=== PATIENT | female | born 1965 | race Caucasian/White ===

== ENCOUNTER 2019-03-22 05:33 | Day surgery (SDC) | payer BC ==
[2019-03-21 10:46] LABS: HEMATOCRIT 42.9 % (36.0-47.0); HEMOGLOBIN 14.9 g/dL (12.0-15.5); MEAN CORPUSCULAR HEMOGLOBIN 29.3 pg (27.0-33.4); MEAN CORPUSCULAR HGB CONC 34.7 g/dL (32.0-36.0); MEAN CORPUSCULAR VOLUME 85 fl (80-97); PLATELET COUNT 303 10^3/uL (150-450); RED BLOOD COUNT 5.08 10^6/uL (3.72-5.28); RED CELL DISTRIBUTION WIDTH 12.8 % (11.5-14.0); WHITE BLOOD COUNT 7.1 10^3/uL (4.0-10.5)
[2019-03-21 10:46] LABS: APPEARANCE,URINE CLEAR; BILIRUBIN,URINE NEGATIVE (NEGATIVE); COLOR,URINE YELLOW; GLUCOSE, URINE NEGATIVE (NEGATIVE); KETONES,URINE NEGATIVE (NEGATIVE); LEUKOCYTE ESTERASE,URINE NEGATIVE (NEGATIVE); NITRITE,URINE NEGATIVE (NEGATIVE); PROTEIN,URINE NEGATIVE (NEGATIVE); URINE SPECIFIC GRAVITY 1.017; UROBILINOGEN,URINE NEGATIVE mg/dL (<2.0)
[~2019-03-22 05:33] MED LIST: LACTATED RINGERS 1000 ML IV PRN; LIDOCAINE 0.5% INJ-PF (5 MG/ML) 50 ML SDV SUBCUT PRN
[2019-03-22] MEDS ORDERED: ONDANSETRON HCL INJ/PF 4 MG/2 ML SDV ONE ×2 (06:46→09:23)
[2019-03-22] MEDS ORDERED: KETOROLAC TROMETHAMINE 60 MG/2 ML SDV ONE (06:46)
[2019-03-22] MEDS ORDERED: FENTANYL CITRATE INJ/PF 100 MCG/2 ML AMPUL ONE (06:46)
[2019-03-22] MEDS ORDERED: MIDAZOLAM 2 MG/2 ML INJ ONE (06:46)
[2019-03-22] MEDS ORDERED: PROPOFOL INJ 200 MG/20 ML VIAL IV ONE (06:47)
[2019-03-22] MEDS ORDERED: LIDOCAINE 1% INJ-PF (10 MG/ML) 30 ML SDV ONE (06:47)
[2019-03-22] MEDS ORDERED: FENTANYL CITRATE INJ/PF 100 MCG/2 ML AMPUL IV PRN ×3 (07:40)
[2019-03-22] MEDS ORDERED: OXYCODONE-ACETAMINOPHEN 5-325 MG TABLET PO PRN ×3 (07:40→08:55)
[2019-03-22] MEDS ORDERED: PROMETHAZINE HCL INJ 25 MG/1 ML VIAL IV PRN ×2 (07:40)
[2019-03-22] MEDS ORDERED: MORPHINE SULFATE 10 MG/ML INJ IV PRN (07:40)
[2019-03-22] MEDS ORDERED: MEPERIDINE HCL/PF INJ 25 MG/1 ML DISP.SYRIN IV PRN (07:40)
[2019-03-22] MEDS ORDERED: DIPHENHYDRAMINE HCL 50 MG/ML VIAL IV PRN (07:40)
[2019-03-22] MEDS ORDERED: ONDANSETRON HCL INJ/PF 4 MG/2 ML SDV IV PRN ×2 (07:40→08:56)
[2019-03-22] MEDS: FENTANYL CITRATE INJ/PF 100 MCG/2 ML AMPUL ONE ×2 (08:02→16:46)
--- NOTE | 2019-03-22 08:08 | Operative Report ---
Operative Report DATE OF SURGERY: 03/22/19 PREOPERATIVE DIAGNOSIS: 1. Postmenopausal bleeding. 2. History of endometrial ablation POSTOPERATIVE DIAGNOSIS: Same plus uterine perforation OPERATION: 1. Diagnostic hysteroscopy. 2. Dilatation and curettage SURGEON: DINORAH LIANG ANESTHESIA: LMAC TISSUE REMOVED OR ALTERED: Endometrial curettings COMPLICATIONS: Uterine perforation ESTIMATED BLOOD LOSS: 5 mL INTRAOPERATIVE FINDINGS: Uterus sounded 8 cm; atrophic, scarred endometrium; unable to identify bilateral ostia; grade 23 uterine prolapse PROCEDURE: The patient was taken to the Operating Room where LMAC anesthesia was obtained without difficulty. She was prepped and draped in the normal sterile fashion in the dorsal lithotomy position. Exam under anesthesia was performed and noted above. A bivalve speculum was placed in the vagina. The anterior cervix was grasped with a single-tooth tenaculum and the uterus sounded to 8 cm. Sequential dilators were then used to dilate the cervix to accommodate the hysteroscope. The hysteroscope was primed with Normal saline and then gently advanced into the uterine cavity in the usual fashion. It was slightly difficult to advance the hysteroscope to the fundal region secondary to her history of endometrial ablation. The endometrial lining was scarred and atrophic. A tract was made using the dilators and with advancement of the hysteroscope. It looked as if I could reach the fundal region, therefore I advanced the hysteroscope and perforated the uterus. The area was hemostatic. I then pulled back the hysteroscope. Pictures were taken and the hysteroscope then removed. At this time gentle a curettage was performed. Scant amounts of endometrium was noted. All instruments were removed from the patient's cervix and vagina. The tenaculum site was hemostatic. Sponge, lap and instrument counts are correct 2. No perioperative antibiotics were given as is not indicated for this procedure. The patient tolerated the procedure well and was taken to the recovery area awake and in stable condition.
[2019-03-22] MEDS ORDERED: ACETAMINOPHEN 1,000 MG/100 ML RTUPB IV ONE (08:11)
[2019-03-22] MEDS ORDERED: OXYCODONE-ACETAMINOPHEN 5-325 MG TABLET ONE (08:49)
[2019-03-22 10:02] VITALS: BP 129/79
== END 2019-03-22 10:05 | disposition home or self-care (01) ==
LOC: OROUT 05:33
PROVIDERS: ATTEND Obstetrics & Gynecology
DX: N93.8 Other specified abnormal uterine and vaginal bleeding (principal); S37.69XA Other injury of uterus, initial encounter; Y65.8 Other specified misadventures during surgical and medical care; Y76.3 Surgical instruments, materials and obstetric and gynecological devices (including sutures) associated with adverse incidents; Y92.530 Ambulatory surgery center as the place of occurrence of the external cause
CPT/HCPCS: 36415; 85027; 81025; 81001; 88305 ×2; 58558; J2250; J1885; J3010; J3490; J2405; J2704; J0131; 952

== ENCOUNTER 2019-09-25 19:57 | Emergency (ER) | payer BC ==
[2019-09-25] MEDS ORDERED: ASPIRIN 81 MG TABLET, CHEWABLE PO ONE (20:26)
--- NOTE | 2019-09-25 20:27 | ER Document Report ---
ED Medical Screen (RME) - General Chief Complaint: Chest Pain Stated Complaint: CHEST PAIN Time Seen by Provider: 09/25/19 20:20 Primary Care Provider: HAILE LONGORIA FNP [Primary Care Provider] - Follow up as needed Mode of Arrival: Ambulatory Information source: Patient Notes: 54-year-old female with history of migraines presents emergency department with complaints of chest tightness since Wednesday. Reports was not bad until today while she is at work she started having some midsternal chest pain and she also reports left-sided chest pain that radiates to her back. Reports she does feel nauseated no vomiting fever diarrhea. No history of cardiac disease. No family history of cardiac disease. EKG shows sinus rhythm. Patient reports she does feel slightly short of breath I have greeted and performed a rapid initial assessment of this patient. A comprehensive ED assessment and evaluation of the patient, analysis of test results and completion of the medical decision making process will be conducted by additional ED providers. Dictation of this chart was performed using voice recognition software; therefore, there may be some unintended grammatical errors. TRAVEL OUTSIDE OF THE [place] IN LAST 30 DAYS: No - Related Data Allergies/Adverse Reactions: fentanyl Adverse Reaction (Verified 03/21/19 09:55) Past Medical History - Past Medical History Cardiac Medical History: Denies: Hx Coronary Artery Disease, Hx Heart Attack, Hx Hypertension Pulmonary Medical History: Denies: Hx Asthma, Hx Bronchitis, Hx COPD, Hx Pneumonia Neurological Medical History: Denies: Hx Cerebrovascular Accident, Hx Seizures Musculoskeltal Medical History: Reports Hx Arthritis - NECK AND WENDI FEET - Immunizations Hx Diphtheria, Pertussis, Tetanus Vaccination: Yes Physical Exam - Vital signs Vitals: Temp Pulse BP Pulse Ox 97.7 F 75 121/93 H 100 09/25/19 20:15 09/25/19 20:15 09/25/19 20:15 09/25/19 20:15 Course - Vital Signs Vital signs: Temp Pulse Resp BP Pulse Ox 97.7 F 75 121/93 H 100 09/25/19 20:15 09/25/19 20:15 09/25/19 20:15 09/25/19 20:15 Doctor's Discharge - Discharge Referrals: HAILE LONGORIA FNP [Primary Care Provider] - Follow up as needed
--- NOTE | 2019-09-25 21:12 | RADIOLOGY REPORT (SQ) ---
XR CHEST 2 VIEWS CLINICAL STATEMENT: chest pain COMPARISON: None FINDINGS: Cardiomediastinal silhouette is within normal limits. There is no focal lung consolidation or pleural effusion. No evidence of pulmonary edema or pneumothorax. IMPRESSION: No acute cardiopulmonary disease.
[2019-09-25 22:12] LABS: ABSOLUTE BASOPHILS # (AUTO) 0.1 10^3/uL (0.0-0.2); ABSOLUTE EOSINOPHILS # (AUTO) 0.2 10^3/uL (0.0-0.6); ABSOLUTE LYMPHOCYTES (AUTO) 2.9 10^3/uL (0.5-4.7); ABSOLUTE MONOCYTES (AUTO) 0.8 10^3/uL (0.1-1.4); ABSOLUTE NEUT (AUTO) 6.1 10^3/uL (1.7-8.2); BASOPHILS % (AUTO) 0.8 % (0-2); HEMATOCRIT 43.3 % (36.0-47.0); HEMOGLOBIN 14.8 g/dL (12.0-15.5); LYMPHOCYTES % (AUTO) 28.6 % (13-45); MEAN CORPUSCULAR HEMOGLOBIN 29.6 pg (27.0-33.4); MEAN CORPUSCULAR HGB CONC 34.1 g/dL (32.0-36.0); MEAN CORPUSCULAR VOLUME 87 fl (80-97); MONOCYTES % (AUTO) 7.7 % (3-13); PLATELET COUNT 302 10^3/uL (150-450); RED BLOOD COUNT 4.98 10^6/uL (3.72-5.28); RED CELL DISTRIBUTION WIDTH 12.4 % (11.5-14.0); SEGMENTED NEUTROPHILS % (AUTO) 60.9 % (42-78); TOTAL CELLS COUNTED % (AUTO) 100 %
[2019-09-26 00:36] LABS: ALBUMIN 4.6 g/dL (3.5-5.0); ALKALINE PHOSPHATASE 73 U/L (38-126); ANION GAP 10 (5-19); ASPARTATE AMINO TRANSFERASE 26 U/L (14-36); BILIRUBIN,DIRECT 0.2 mg/dL (0.0-0.4); BILIRUBIN,TOTAL 0.6 mg/dL (0.2-1.3); BLOOD UREA NITROGEN 22 mg/dL (7-20); CALCIUM 10.2 mg/dL (8.4-10.2); CARBON DIOXIDE 27 mmol/L (22-30); CHLORIDE 106 mmol/L (98-107); GLUCOSE 90 mg/dL (75-110); POTASSIUM 4.1 mmol/L (3.6-5.0); TOTAL PROTEIN 7.6 g/dL (6.3-8.2)
--- NOTE | 2019-09-26 02:08 | ER Document Report ---
ED General - General Chief Complaint: Chest Pain Stated Complaint: CHEST PAIN Time Seen by Provider: 09/25/19 20:20 Primary Care Provider: HAILE LONGORIA FNP [Primary Care Provider] - Follow up as needed Mode of Arrival: Ambulatory TRAVEL OUTSIDE OF THE [place] IN LAST 30 DAYS: No - HPI Notes: Patient is a pleasant 53-year-old female who presents emergency department for evaluation of chest pain. She states that it is been present since Wednesday she describes a tightness in her substernal area, then an occasional waxing and waning sharp chest pain in her left chest. It seems to radiate intermittently into the back, with mild associated shortness of breath. She denies any associated nausea, diaphoresis, near syncope. She admits that she is been taking her Imitrex a lot lately. She is been having significant migraines. She does not have any migraine headache right now. She states that these are typical of her normal migraine headaches. - Related Data Allergies/Adverse Reactions: fentanyl Adverse Reaction (Verified 03/21/19 09:55) Home Medications: Imitrex 50 mg PRN migraine Past Medical History - General Information source: Patient - Social History Smoking Status: Former Smoker Chew tobacco use (# tins/day): No Frequency of alcohol use: Rare Drug Abuse: None Family History: Malignancy Patient has suicidal ideation: No Patient has homicidal ideation: No - Past Medical History Cardiac Medical History: Denies: Hx Coronary Artery Disease, Hx Heart Attack, Hx Hypertension Pulmonary Medical History: Denies: Hx Asthma, Hx Bronchitis, Hx COPD, Hx Pneumonia Neurological Medical History: Reports: Hx Migraine. Denies: Hx Cerebrovascular Accident, Hx Seizures Musculoskeletal Medical History: Reports Hx Arthritis - NECK AND WENDI FEET - Immunizations Hx Diphtheria, Pertussis, Tetanus Vaccination: Yes Review of Systems - Review of Systems Constitutional: No symptoms reported EENT: No symptoms reported Cardiovascular: See HPI Respiratory: No symptoms reported Gastrointestinal: No symptoms reported Genitourinary: No symptoms reported Musculoskeletal: No symptoms reported Skin: No symptoms reported Neurological/Psychological: No symptoms reported Physical Exam - Vital signs Vitals: Temp Pulse BP Pulse Ox 97.7 F 75 121/93 H 100 09/25/19 20:15 09/25/19 20:15 09/25/19 20:15 09/25/19 20:15 - Notes Notes: Vital signs reviewed, please refer to chart. Head is normocephalic, atraumatic. Pupils equal round, reactive to light. Neck is supple without meningismus. Heart is regular rate and rhythm. Lungs are clear to auscultation bilaterally. Left chest wall tenderness reproduces her pain, no substernal pain with palpation. Abdomen is soft, nontender, normoactive bowel sounds throughout. Extremities without cyanosis, clubbing. Posterior calves are nontender. Peripheral pulses are equal. Skin is warm and dry. Patient is awake, alert, neurological exam is nonfocal. Course - Re-evaluation Re-evalutation: 09/26/19 02:06 Patient presents emergency department for evaluation of several days of chest pain. Her laboratory investigations and EKG were ordered as per triage. Her EKG was unremarkable. Her cardiac enzymes revealed an undetectable troponin. She has been taking a significant amount of Imitrex as of late. Chest pain is a known side effect of this medication. I explained her that this was likely etiology, but I strongly encouraged her to address her risk factors in regards to coronary artery disease. She voiced understanding to this. She is to follo w-up with primary care, return to the ED with worsening or new concerning symptoms of any sort. - Vital Signs Vital signs: Temp Pulse Resp BP Pulse Ox 97.7 F 75 121/93 H 100 09/25/19 20:15 09/25/19 20:15 09/25/19 20:15 09/25/19 20:15 - Laboratory Result Diagrams: 09/25/19 21:51 09/25/19 20:45 Laboratory results interpreted by me: 09/25/19 20:45 BUN 22 H - Diagnostic Test Radiology reviewed: Reports reviewed Radiology results interpreted by me: 09/26/19 02:07 Chest X-Ray 09/25/19 20:25 IMPRESSION: No acute cardiopulmonary disease. - EKG Interpretation by Me Additional EKG results interpreted by me: 09/26/19 02:07 Sinus mechanism with a rate of 72 bpm. Normal axis and intervals, no acute ST changes concerning for ischemia or infarction. Discharge - Discharge Clinical Impression: Chest pain Condition: Stable Disposition: HOME, SELF-CARE Instructions: Chest Pain of Unclear Cause ([facility]) Additional Instructions: No clear cause was found for your chest pain tonight. It can be a side effect of the Imitrex, I recommend that you decrease your usage of this medication. Follow-up with your primary care provider this week. If you develop increased chest pain, difficulty breathing, or any other new or concerning symptoms, please return immediately to the emergency department for evaluation. Referrals: HAILE LONGORIA FNP [Primary Care Provider] - Follow up as needed
[2019-09-26 02:39] VITALS: BP 151/79
--- NOTE | 2019-09-26 07:29 | EKG REPORT ---
SEVERITY:- NORMAL ECG - SINUS RHYTHM : Confirmed by: Kulwinder Membreno MD 26-Sep-2019 07:29:37
== END 2019-09-26 02:43 | disposition home or self-care (01) ==
LOC: ER 19:57
DX: R07.9 Chest pain, unspecified (principal); R06.02 Shortness of breath
CPT/HCPCS: 36415; 71046; 80053; 84484; 85025; 93005; 93010; 99285

== ENCOUNTER → 2019-10-23 | Outpatient (CLI) | payer BC ==
--- NOTE | 2019-10-24 22:18 | XCELERA REPORT ---
[address] [address] Transthoracic Echocardiogram Report Name: RAZIA HAMILTON Age: 54 yrs Gender: Female : 1965 Patient Status: Outpatient Patient Location: Study Date: 10/23/2019 09:13 AM Height: 69 in Weight: 214 lb BSA: 2.1 m2 Procedure: A complete two-dimensional transthoracic echocardiogram was performed (2D, M-mode, spectral and color flow Doppler). The study was technically difficult with many images being suboptimal in quality. Reason For Study: CHEST PAIN Ordering Physician: INOCENCIA REHMAN Performed By: Luci Andrade Interpretation Summary The left ventricular ejection fraction is normal. There is mild concentric left ventricular hypertrophy. The left ventricle is grossly normal size. Doppler measurements suggest pseudonormalized left ventricular relaxation, which is associated with grade II/IV or mild to moderate diastolic dysfunction Wall motion cannot be accurately commented on, but no definite regional wall motion abnormalities noted. The right ventricular systolic function is normal. The left atrium is borderline dilated. The right atrium is normal. There is a trace amount of mitral regurgitation There is no mitral valve stenosis. No aortic regurgitation is present. There is no aortic valve stenosis There is a trace amount of tricuspid regurgitation Tricuspid regurgitation jet envelope not well defined to measure RV systolic pressure accurately. Minimal pericardial effusion. MMode/2D Measurements & Calculations RVDd: 3.4 cm LVIDd: 4.9 cm FS: 35.3 % Ao root diam: 3.0 cm IVSd: 1.1 cm LVIDs: 3.2 cm EDV(Teich): 113.5 ml Ao root area: 7.2 cm2 LVPWd: 1.1 cm ESV(Teich): 40.2 ml LA dimension: 3.4 cm EF(Teich): 64.6 % Doppler Measurements & Calculations MV E max feli: MV P1/2t max feli: Ao V2 max: LV V1 max P.1 cm/sec 66.1 cm/sec 95.0 cm/sec 2.2 mmHg MV A max feli: MV P1/2t: 54.6 msec Ao max P.6 mmHg LV V1 max: 76.0 cm/sec MVA(P1/2t): 4.0 cm2 74.0 cm/sec MV E/A: 0.87 MV dec slope: 354.7 cm/sec2 MV dec time: 0.19 sec PA V2 max: TR max feli: MV P1/2t-pr_phl: 68.6 cm/sec 204.6 cm/sec 54.6 msec PA max P.9 mmHgTR max P.7 mmHg Left Ventricle The left ventricle is grossly normal size. There is mild concentric left ventricular hypertrophy. The left ventricular ejection fraction is normal. Doppler measurements suggest pseudonormalized left ventricular relaxation, which is associated with grade II/IV or mild to moderate diastolic dysfunction. Wall motion cannot be accurately commented on, but no definite regional wall motion abnormalities noted. Right Ventricle The right ventricle is normal in size, thickness and function. There is normal right ventricular wall thickness. The right ventricular systolic function is normal. Atria The right atrium is normal. The left atrium is borderline dilated. Interarterial septum not well visualized and not well dopplered. Cannot comment on ASD/PFO presence. Mitral Valve The mitral valve is grossly normal. There is no mitral valve stenosis. There is a trace amount of mitral regurgitation. Aortic Valve The aortic valve is grossly normal. There is no aortic valve stenosis. No aortic regurgitation is present. Tricuspid Valve The tricuspid valve is not well visualized, but is grossly normal. There is no tricuspid stenosis. There is a trace amount of tricuspid regurgitation. Tricuspid regurgitation jet envelope not well defined to measure RV systolic pressure accurately. Pulmonic Valve The pulmonic valve is not well visualized. Great Vessels The aortic root is not well visualized. The inferior vena cava appeared normal and decreased > 50% with respiration (RAP 5-10 mmHg). Effusions Minimal pericardial effusion. : INOCENCIA REHMAN Shyamal
== END ==
LOC: SP 08:55
PROVIDERS: ATTEND Physician Assistant
DX: R60.0 Localized edema (principal)
CPT/HCPCS: 93306